=== PATIENT | female | born 1965 | race Caucasian/White ===

== ENCOUNTER 2018-03-25 08:14 | Outpatient (CLI) | payer OTHER | END 2018-03-25 08:15 | disposition home or self-care (01) | LOC: LAB 08:14 | DX: N91.1 Secondary amenorrhea (principal) ==

== ENCOUNTER 2018-03-25 11:54 | Outpatient (CLI) | payer OTHER | END 2018-03-25 12:01 | disposition home or self-care (01) | LOC: MAMO-SONO 11:54 | DX: Z12.31 Encounter for screening mammogram for malignant neoplasm of breast (principal); N60.11 Diffuse cystic mastopathy of right breast ==

== ENCOUNTER 2022-06-01 08:07 | Outpatient (CLI) | payer OTHER | END 2022-06-01 08:16 | disposition home or self-care (01) | LOC: SONOGRAMA 08:07 | PROVIDERS: ATTEND Specialist | DX: K80.00 Calculus of gallbladder with acute cholecystitis without obstruction (principal) ==

== ENCOUNTER 2022-06-01 09:21 | Outpatient (CLI) | payer OTHER | END 2022-06-01 09:22 | disposition home or self-care (01) | LOC: LAB 09:21 | PROVIDERS: ATTEND Internal Medicine Endocrinology, Diabetes & Metabolism | DX: D64.9 Anemia, unspecified (principal); I10 Essential (primary) hypertension; E55.9 Vitamin D deficiency, unspecified; E03.9 Hypothyroidism, unspecified ==

== ENCOUNTER 2023-02-22 11:05 | Outpatient (CLI) | payer OTHER | END 2023-02-22 11:25 | disposition home or self-care (01) | LOC: MRI 11:05 | DX: M15.8 Other polyosteoarthritis (principal); M25.561 Pain in right knee; M25.562 Pain in left knee | CPT/HCPCS: 73721 ==

== ENCOUNTER 2023-05-11 07:44 | Outpatient (CLI) | payer OTHER ==
[2023-05-11 09:40] LABS: HEMATOCRIT 39.7 % (36.0-45.00); HEMOGLOBIN 13.1 g/dL (12.0-15.00); MEAN CELL VOLUME 92.2 fL (80.00-100.00); MEAN CORPUSCULAR HEMOGLOBIN 30.4 pg (27.00-32.0); PLATELET COUNT 235 K/uL (150-450); RED BLOOD COUNT 4.31 M/uL (4.00-6.00); RED CELL DISTRIBUTION WIDTH 14.4 % (11.5-14.5)
[2023-05-11 10:22] LABS: ALBUMIN 3.5 gm/dL (3.4-5.0); ALKALINE PHOSPHATASE 78 U/L (50-136); ALT/SGPT 16 U/L (12-78); AST/SGOT 9 U/L (15-37); BLOOD UREA NITROGEN 16 mg/dL (7-18); BUN CREA RATIO 26 (7.0-25.0); CALCIUM 8.8 mg/dL (8.5-10.1); CARBON DIOXIDE 31 mEq/L (21-32); CHLORIDE 107 mmol/L (98-107); CHOLESTEROL 238 mg/dL (0-200); CREATININE SERUM 0.62 mg/dL (0.55-1.02); GFR 99.21; GLOBULINA 3.1 G/DL (2.4-3.5); GLUCOSE FASTING 89 mg/dL (65-100); HDL 89 mg/dl (40-60); LDL 132 mg/dl (0-130); OSMOLALITY SERUM 278 MOSM/KG (275-295); SODIUM 139 mmol/L (136-145); TOTAL PROTEIN 6.6 gm/dL (6.4-8.2); TRIGLYCERIDES 86 mg/dL (0-150); VLDL 17 (0-39)
== END 2023-05-11 07:45 | disposition home or self-care (01) ==
LOC: LAB 07:44
PROVIDERS: ATTEND Internal Medicine Endocrinology, Diabetes & Metabolism
DX: E88.81 Metabolic syndrome and other insulin resistance (principal); E03.9 Hypothyroidism, unspecified; E04.0 Nontoxic diffuse goiter; Z13.0 Encounter for screening for diseases of the blood and blood-forming organs and certain disorders involving the immune mechanism; E55.9 Vitamin D deficiency, unspecified; E66.9 Obesity, unspecified; E78.00 Pure hypercholesterolemia, unspecified; F51.01 Primary insomnia; M19.90 Unspecified osteoarthritis, unspecified site; L68.0 Hirsutism; R89.1 Abnormal level of hormones in specimens from other organs, systems and tissues; N95.1 Menopausal and female climacteric states; R68.82 Decreased libido; E65 Localized adiposity; R94.5 Abnormal results of liver function studies; N39.0 Urinary tract infection, site not specified; N95.9 Unspecified menopausal and perimenopausal disorder; Z12.4 Encounter for screening for malignant neoplasm of cervix; E11.65 Type 2 diabetes mellitus with hyperglycemia; D64.9 Anemia, unspecified

== ENCOUNTER 2025-02-22 11:05 | Outpatient (CLI) | payer OTHER | END 2025-02-22 11:14 | disposition home or self-care (01) | LOC: SONOGRAMA 11:05 | PROVIDERS: ATTEND General Practice | DX: E04.2 Nontoxic multinodular goiter (principal) ==